=== PATIENT | male | born 1990 | race Caucasian/White ===

== ENCOUNTER → 2018-03-10 14:55 | Outpatient (CLI) | payer OTHER, MEDICAID, SELFPAY ==
[2018-03-10 14:28] VITALS: TEMP 36.4
[2018-03-10 18:04] LABS: Clostridium Difficile Tox PCR NEGATIVE for C. diff
== END ==
PROVIDERS: PCP Specialist; Visit Provider Physician Assistant
DX: R19.7 Diarrhea, unspecified (principal)
CPT/HCPCS: 87493

== ENCOUNTER → 2018-03-10 14:59 | Outpatient (CLI) | payer OTHER, MEDICAID, SELFPAY ==
[2018-03-10 14:28] VITALS: TEMP 36.4
== END ==
PROVIDERS: PCP Specialist; Visit Provider Physician Assistant
DX: R19.7 Diarrhea, unspecified (principal); Z53.9 Procedure and treatment not carried out, unspecified reason
CPT/HCPCS: 87493

== ENCOUNTER → 2018-06-29 10:57 | Outpatient (CLI) | payer OTHER, MEDICAID, SELFPAY ==
--- NOTE | 2018-06-29 10:59 | DI.RAD.S_ITS ---
PROCEDURE: XR CHEST 2V INDICATIONS: chest pain and SOB TECHNIQUE: 2 views of the chest were acquired. COMPARISON: [facility], , CHEST 2 VIEW, 02/10/2018, 12:51. FINDINGS: Surgical changes and devices: None. Lungs and pleura: No pleural effusions or pneumothorax. Lungs are clear. Mediastinum: Mediastinal contours are normal. Heart size is normal. Bones and chest wall: No suspicious bony abnormalities. Soft tissues appear unremarkable. IMPRESSION: Normal for age, source of current symptoms is not seen. Dictated by: Lalo Osman M.D. on 06/29/2018 at 12:52 Approved by: Lalo Osman M.D. on 06/29/2018 at 12:52
[2018-06-29 13:11] LABS: D Dimer < 200 ng/mL (<230)
[2018-06-29 13:15] LABS: Alanine Aminotransferase 26 IU/L (21-72); Albumin 4.1 g/dL (3.5-5.0); Albumin Globulin Ratio 1.5 (1.0-2.8); Alkaline Phosphatase 63 U/L (38-126); Aspartate Aminotransferase 20 IU/L (17-59); Bilirubin Total 0.6 mg/dL (0.2-1.3); Blood Urea Nitrogen 18 mg/dL (9-20); Calcium 9.1 mg/dL (8.4-10.2); Carbon Dioxide 29 mmol/L (22-32); Chloride 102 mmol/L (98-107); Estimated Glomerular Filt Rate > 60.0 mL/min (>60); Globulin 2.7 g/dL (1.7-4.1); Glucose 119 mg/dL (70-100); HEMOLYSIS < 15 (0-50); Potassium 3.5 mmol/L (3.4-5.1); Sodium 143 mmol/L (137-145); Total Protein 6.8 g/dL (6.3-8.2)
== END ==
PROVIDERS: Visit Provider Internal Medicine
DX: R07.9 Chest pain, unspecified (principal); R06.02 Shortness of breath
CPT/HCPCS: 36415; 71046; 80053; 85379

== ENCOUNTER 2018-06-30 16:33 | Emergency (ER) | payer OTHER, MEDICAID, SELFPAY ==
[2018-06-30 16:35] VITALS: BP 111/73; PULSE 65; RESP 20; TEMP 35.9; O2SAT 98; BMI 29.6
--- NOTE | 2018-06-30 16:49 | DI.RAD.S_ITS ---
PROCEDURE: XR CHEST 1V INDICATIONS: cp TECHNIQUE: One view of the chest was acquired. COMPARISON: 02/10/2018. FINDINGS: Surgical changes and devices: None. Lungs and pleura: No pleural effusions or pneumothorax. Lungs are clear. Mediastinum: Mediastinal contours appear normal. Heart size is normal. Bones and chest wall: No suspicious bony lesions. Overlying soft tissues appear unremarkable. IMPRESSION: No radiographic evidence of acute cardiopulmonary pathology. Dictated by: Kedar Camacho M.D. on 06/30/2018 at 17:04 Approved by: Kedar Camacho M.D. on 06/30/2018 at 17:05
--- NOTE | 2018-06-30 18:30 | ED.CHESTPAIN ---
HPI - Chest Pain General Chief Complaint: Chest Pain Stated Complaint: chest pain [id number] Time Seen by Provider: 06/30/18 17:56 Source: patient Mode of arrival: ambulatory Limitations: no limitations History of Present Illness HPI narrative: A 28-year-old male presents to the emergency department with a significant other and a chief complaint of a few days of worsening sharp and stabbing left anterior chest pain. It is worse when he moves, takes a deep breath or sits forward. He denies any a shortness of breath and is not dizzy nor weak or lightheaded. He does state that he was seen by his primary care provider a few days ago and put on anti-inflammatories and Tylenol. complaint: chest pain Onset (ago): day(s) Duration: intermittent Pain location: left chest Severity: moderate Severity scale (1-10): 5 Quality: sharp Pain radiation: none Relieving factors: remaining still Exacerbating factors: inspiration and movement Treatments prior to arrival chest pain: none Related Data Home Medications Medication Instructions Recorded Confirmed Lactobacillus acidophilus capsule 100 mg PO DAILY 03/10/18 06/29/18 Previous Rx's Medication Instructions Recorded colchicine 0.6 mg PO BID #20 tab 06/30/18 prednisone See Label Instructions PO PER PKG 06/30/18 DIR #21 each Allergies Allergy/AdvReac Type Severity Reaction Status Date / Time No Known Allergies Allergy Uncoded 06/29/18 11:30 Review of Systems Review of Systems All systems reviewed & are unremarkable except as noted in HPI and below Constitutional Denies chills, Denies fever(s), Denies lethargy and Denies weakness Eyes Denies change in vision, Denies eye discharge, Denies irritation and Denies loss of vision ENT Ears, Nose, Mouth, and Throat: Denies change in voice, Denies neck pain and Denies sore throat Cardiovascular Reports chest pain, Denies irregular heart rhythm, Denies lightheadedness, Denies palpitations, Denies dyspnea, Denies dyspnea on exertion and Denies orthopnea Respiratory Denies cough, Denies dyspnea, Denies dyspnea on exertion and Denies wheezing Gastrointestinal Gastrointestinal: Denies abdominal pain, Denies change in bowel habits, Denies diarrhea, Denies nausea and Denies vomiting Genitourinary Denies hematuria, Denies flank pain, Denies urinary incontinence and Denies urinary urgency Musculoskeletal Denies neck pain Integumentary/Breasts Denies pruritus, Denies erythema, Denies rash and Denies wounds Neurologic Denies confusion, Denies loss of vision and Denies weakness Psychiatric Denies anxiety, Denies confusion, Denies depression, Denies homicidal ideation and Denies suicidal ideation Endocrine Denies palpitations Hematologic/Lymphatic Denies easy bruising Allergic/Immunologic Denies wheezing [facility] Social History Smoking Status: Never smoker Exam Narrative Exam Narrative: GENERAL: 28-year-old male in mild distress, clutching his left chest HEAD: Atraumatic. Normocephalic. No temporal or scalp tenderness. EYES: Pupils equal round and reactive. Extraocular motions intact. No scleral icterus. No injection or drainage. ENT: Nose without bleeding, purulent drainage or septal hematoma. Throat without erythema, tonsillar hypertrophy or exudate. Uvula midline. Airway patent. NECK: Trachea midline. No JVD or lymphadenopathy. Supple, nontender, no meningeal signs. CARDIOVASCULAR: Regular rate and rhythm without murmurs, gallops, or rubs. Sharp stabbing plane on left anterior chest worse with palpation RESPIRATORY: Clear to auscultation. Breath sounds equal bilaterally. No wheezes, rales, or rhonchi. GASTROINTESTINAL: Abdomen soft, non-tender, nondistended. No hepato-splenomegaly, or palpable masses. No guarding. EXTREMITIES: No clubbing, cyanosis, or edema. No joint tenderness, effusion, or edema noted. BACK: Nontender without deformity or crepitance. No flank tenderness. NEURO: AOx3. SKIN: No rash or erythema. Initial Vital Signs Initial Vital Signs: Vital Signs Temperature 96.7 F L 06/30/18 16:35 Pulse Rate 65 06/30/18 16:35 Respiratory Rate 20 06/30/18 16:35 Blood Pressure 111/73 06/30/18 16:35 Pulse Oximetry 98 06/30/18 16:35 Course Orders Ordered: ED Orders 06/30/18 18:45 C-Reactive Protein Quant Stat Complete Blood Count AUTO DIFF Stat Comprehensive Metabolic Panel Stat Erythrocyte Sedimentation Rate Stat Lipase Stat Troponin & CK Cardiac Panel Stat Discontinued Medications Aspirin (Aspirin Chew) 324 mg PO NOW ONE Stop: 06/30/18 16:50 Last Admin: 08/29/18 19:13 Dose: Not Given Colchicine (Colcrys) 1.2 mg PO NOW ONE Stop: 06/30/18 19:56 Last Admin: 06/30/18 20:19 Dose: 1.2 mg Sodium Chloride (Normal Saline 0.9%) 1,000 mls @ 150 mls/hr IV CONT DESIREE Last Infusion: 06/30/18 20:20 Dose: 0 mls/hr Admin: 06/30/18 19:10 Dose: 150 mls/hr Vital Signs - 8 hr 06/30/18 19:27 06/30/18 20:00 06/30/18 21:09 Temperature 97.5 F L Pulse Rate 65 60 61 Respiratory Rate 16 15 16 Blood Pressure 160/77 H Blood Pressure [Left Arm] 118/81 H 105/64 Pulse Oximetry 99 100 100 MDM - Chest Pain Differential Diagnosis Likely pneumothorax, stable angina, unstable angina pectoris, atypical chest pain, st elevation myocardial infarction, costochondritis, chest pain and biliary colic Medical Records Data Attestation: I reviewed the patient's medical records. Lab Data Attestation: I reviewed the patient's lab results. Result diagrams: 06/30/18 18:45 06/30/18 18:45 Lab Results 06/30/18 06/30/18 06/30/18 Range/Units 18:45 18:45 18:45 WBC 7.1 (4.5-11.0) X10^3/uL RBC 5.15 (4.5-5.9) X10^6/uL Hgb 15.3 (13.5-17.5) g/dL Hct 44.1 (41-53) % MCV 85.5 (80-100) fL MCH 29.8 (26-34) PG MCHC 34.8 (30-36) % RDW 13.1 (11.6-14.8) % Plt Count 268 (150-400) X10^3/uL Neut % (Auto) 68.5 (50-75) % Lymph % (Auto) 24.8 L (25-40) % [place] % (Auto) 4.9 (3-14) % Eos % (Auto) 1.0 L (2-4) % Baso % (Auto) 0.8 (0-2) % Neut # (Auto) 4900 (5195-2817) /uL ESR 4 (0-15) MM/HR Sodium 144 (137-145) mmol/L Potassium 4.0 (3.4-5.1) mmol/L Chloride 107 (98-107) mmol/L Carbon Dioxide 26 (22-32) mmol/L BUN 19 (9-20) mg/dL Creatinine 0.80 (0.66-1.25) mg/dL Estimated GFR > 60.0 (>60) mL/min BUN/Creatinine Ratio 23.8 H (6-22) Glucose 89 (70-100) mg/dL Calcium 9.2 (8.4-10.2) mg/dL Total Bilirubin 0.5 (0.2-1.3) mg/dL AST 17 (17-59) IU/L ALT 21 (21-72) IU/L Alkaline Phosphatase 65 (38-126) U/L Total Creatine Kinase 69 (55-170) U/L CK-MB (CK-2) TNP Troponin I < 0.012 (0.01-0.034) ng/mL C-Reactive Protein 0.7 (<1.0) mg/dL Total Protein 7.1 (6.3-8.2) g/dL Albumin 4.2 (3.5-5.0) g/dL Globulin 2.9 (1.7-4.1) g/dL Albumin/Globulin Ratio 1.4 (1.0-2.8) Lipase 60 (23-300) U/L ECG Data Attestation: I personally reviewed and interpreted this ECG as follows: Prior ECG tracings: not available for review Interpretation: Normal sinus rhythm without signs of ectopy or ischemia MDM Narrative Medical decision making narrative: Patient is completely reproducible chest pain which is most consistent with pleurisy or costochondritis but has not improved with anti-inflammatories or Tylenol. PE considered but patient has normal D-dimer as ordered on an outpatient and the [facility] protocol would dictate no imaging needed. Myocardial infarction considered but normal troponin and EKG with non ischemic symptoms make this less likely. Pericarditis considered despite EKG without widespread ST changes. Pleuritic-type pain which is worse while leaning forward Discharge Plan Departure Patient Disposition: Home Clinical Impression: Atypical chest pain, Pericarditis Discharge Date/Time: 06/30/18 21:10 Interventions: ED Discharge Assessment Last Done: 06/30/18 21:09 Instructions: Pericarditis -- Adult Activity Restrictions/Additional Instructions: *You have been diagnosed with [ atypical chest pain, pericarditis ] *What to do: *Take medications as directed *Follow up with your primary care provider in 2-3 days, call for an appointment. Let them know you were seen in the Emergency Department and that we ask that you be seen in follow up *Return to ER if you should have any new, worsening or concerning symptoms Prescriptions: New prednisone 10 mg tablets,dose pack See Label Instructions PO PER PKG DIR Qty: 21 RF: 0 colchicine 0.6 mg tablet 0.6 mg PO BID Qty: 20 RF: 0 No Action Lactobacillus acidophilus capsule 100 mg PO DAILY RF: 0
[2018-06-30 18:57] LABS: Add Manual Diff / Slide Review NO; Basophils Percent Auto 0.8 % (0-2); Hematocrit 44.1 % (41-53); Hemoglobin 15.3 g/dL (13.5-17.5); Lymphocytes Percent Auto 24.8 % (25-40); Mean Corpuscular HGB Conc 34.8 % (30-36); Mean Corpuscular Hemoglobin 29.8 PG (26-34); Mean Corpuscular Volume 85.5 fL (80-100); Monocytes Percent Auto 4.9 % (3-14); Neutrophils Absolute Auto 4900 /uL (3000-5900); Neutrophils Percent Auto 68.5 % (50-75); Platelet Count 268 X10^3/uL (150-400); Red Blood Cell Count 5.15 X10^6/uL (4.5-5.9); Red Cell Distribution Width 13.1 % (11.6-14.8); White Blood Cell Count 7.1 X10^3/uL (4.5-11.0)
[2018-06-30] MEDS: SODIUM CHLORIDE 0.9% 1,000 ML 150 ML IV (19:10)
[2018-06-30 19:12] LABS: Alanine Aminotransferase 21 IU/L (21-72); Albumin 4.2 g/dL (3.5-5.0); Albumin Globulin Ratio 1.4 (1.0-2.8); Alkaline Phosphatase 65 U/L (38-126); Aspartate Aminotransferase 17 IU/L (17-59); BUN Creatinine Ratio 23.8 (6-22); Bilirubin Total 0.5 mg/dL (0.2-1.3); Blood Urea Nitrogen 19 mg/dL (9-20); Calcium 9.2 mg/dL (8.4-10.2); Carbon Dioxide 26 mmol/L (22-32); Chloride 107 mmol/L (98-107); Creatine Kinase 69 U/L (55-170); Estimated Glomerular Filt Rate > 60.0 mL/min (>60); Globulin 2.9 g/dL (1.7-4.1); Glucose 89 mg/dL (70-100); HEMOLYSIS < 15 (0-50); Lipase 60 U/L (23-300); Sodium 144 mmol/L (137-145); Total Protein 7.1 g/dL (6.3-8.2)
[2018-06-30 19:17] LABS: C-Reactive Protein Quant 0.7 mg/dL (<1.0)
[2018-06-30 19:20] LABS: Erythrocyte Sedimentation Rate 4 MM/HR (0-15)
[2018-06-30 19:25] LABS: Troponin I < 0.012 ng/mL (0.01-0.034)
[2018-06-30 19:27] VITALS: BP 118/81; PULSE 65; RESP 16; O2SAT 99
[2018-06-30 20:00] VITALS: BP 105/64; PULSE 60; RESP 15; O2SAT 100
[2018-06-30] MEDS: COLCHICINE 0.6 MG TABLET 1.2 MG PO (20:19)
[2018-06-30 21:09] VITALS: BP 160/77; PULSE 61; RESP 16; TEMP 36.4; O2SAT 100
--- NOTE | 2018-07-01 02:02 | ED_ITS ---
HPI - Chest Pain General Chief Complaint: Chest Pain Stated Complaint: chest pain [id number] Time Seen by Provider: 06/30/18 17:56 Source: patient Mode of arrival: ambulatory Limitations: no limitations History of Present Illness HPI narrative: A 28-year-old male presents to the emergency department with a significant other and a chief complaint of a few days of worsening sharp and stabbing left anterior chest pain. It is worse when he moves, takes a deep breath or sits forward. He denies any a shortness of breath and is not dizzy nor weak or lightheaded. He does state that he was seen by his primary care provider a few days ago and put on anti-inflammatories and Tylenol. complaint: chest pain Onset (ago): day(s) Duration: intermittent Pain location: left chest Severity: moderate Severity scale (1-10): 5 Quality: sharp Pain radiation: none Relieving factors: remaining still Exacerbating factors: inspiration and movement Treatments prior to arrival chest pain: none Related Data Home Medications Medication Instructions Recorded Confirmed Lactobacillus acidophilus capsule 100 mg PO DAILY 03/10/18 06/29/18 Previous Rx's Medication Instructions Recorded colchicine 0.6 mg PO BID #20 tab 06/30/18 prednisone See Label Instructions PO PER PKG 06/30/18 DIR #21 each Allergies Allergy/AdvReac Type Severity Reaction Status Date / Time No Known Allergies Allergy Uncoded 06/29/18 11:30 Review of Systems Review of Systems All systems reviewed & are unremarkable except as noted in HPI and below Constitutional Denies chills, Denies fever(s), Denies lethargy and Denies weakness Eyes Denies change in vision, Denies eye discharge, Denies irritation and Denies loss of vision ENT Ears, Nose, Mouth, and Throat: Denies change in voice, Denies neck pain and Denies sore throat Cardiovascular Reports chest pain, Denies irregular heart rhythm, Denies lightheadedness, Denies palpitations, Denies dyspnea, Denies dyspnea on exertion and Denies orthopnea Respiratory Denies cough, Denies dyspnea, Denies dyspnea on exertion and Denies wheezing Gastrointestinal Gastrointestinal: Denies abdominal pain, Denies change in bowel habits, Denies diarrhea, Denies nausea and Denies vomiting Genitourinary Denies hematuria, Denies flank pain, Denies urinary incontinence and Denies urinary urgency Musculoskeletal Denies neck pain Integumentary/Breasts Denies pruritus, Denies erythema, Denies rash and Denies wounds Neurologic Denies confusion, Denies loss of vision and Denies weakness Psychiatric Denies anxiety, Denies confusion, Denies depression, Denies homicidal ideation and Denies suicidal ideation Endocrine Denies palpitations Hematologic/Lymphatic Denies easy bruising Allergic/Immunologic Denies wheezing [facility] Social History Smoking Status: Never smoker Exam Narrative Exam Narrative: GENERAL: 28-year-old male in mild distress, clutching his left chest HEAD: Atraumatic. Normocephalic. No temporal or scalp tenderness. EYES: Pupils equal round and reactive. Extraocular motions intact. No scleral icterus. No injection or drainage. ENT: Nose without bleeding, purulent drainage or septal hematoma. Throat without erythema, tonsillar hypertrophy or exudate. Uvula midline. Airway patent. NECK: Trachea midline. No JVD or lymphadenopathy. Supple, nontender, no meningeal signs. CARDIOVASCULAR: Regular rate and rhythm without murmurs, gallops, or rubs. Sharp stabbing plane on left anterior chest worse with palpation RESPIRATORY: Clear to auscultation. Breath sounds equal bilaterally. No wheezes , rales, or rhonchi. GASTROINTESTINAL: Abdomen soft, non-tender, nondistended. No hepato-splenomegaly , or palpable masses. No guarding. EXTREMITIES: No clubbing, cyanosis, or edema. No joint tenderness, effusion, or edema noted. BACK: Nontender without deformity or crepitance. No flank tenderness. NEURO: AOx3. SKIN: No rash or erythema. Initial Vital Signs Initial Vital Signs: Vital Signs Temperature 96.7 F L 06/30/18 16:35 Pulse Rate 65 06/30/18 16:35 Respiratory Rate 20 06/30/18 16:35 Blood Pressure 111/73 06/30/18 16:35 Pulse Oximetry 98 06/30/18 16:35 Course Orders Ordered: ED Orders 06/30/18 18:45 C-Reactive Protein Quant Stat Complete Blood Count AUTO DIFF Stat Comprehensive Metabolic Panel Stat Erythrocyte Sedimentation Rate Stat Lipase Stat Troponin & CK Cardiac Panel Stat Discontinued Medications Aspirin (Aspirin Chew) 324 mg PO NOW ONE Stop: 06/30/18 16:50 Last Admin: 08/29/18 19:13 Dose: Not Given Colchicine (Colcrys) 1.2 mg PO NOW ONE Stop: 06/30/18 19:56 Last Admin: 06/30/18 20:19 Dose: 1.2 mg Sodium Chloride (Normal Saline 0.9%) 1,000 mls @ 150 mls/hr IV CONT DESIREE Last Infusion: 06/30/18 20:20 Dose: 0 mls/hr Admin: 06/30/18 19:10 Dose: 150 mls/hr Vital Signs - 8 hr 06/30/18 19:27 06/30/18 20:00 06/30/18 21:09 Temperature 97.5 F L Pulse Rate 65 60 61 Respiratory Rate 16 15 16 Blood Pressure 160/77 H Blood Pressure [Left Arm] 118/81 H 105/64 Pulse Oximetry 99 100 100 MDM - Chest Pain Differential Diagnosis Likely pneumothorax, stable angina, unstable angina pectoris, atypical chest pain, st elevation myocardial infarction, costochondritis, chest pain and biliary colic Medical Records Data Attestation: I reviewed the patient's medical records. Lab Data Attestation: I reviewed the patient's lab results. Result diagrams: 06/30/18 18:45 06/30/18 18:45 Lab Results 06/30/18 06/30/18 06/30/18 Range/Units 18:45 18:45 18:45 WBC 7.1 (4.5-11.0) X10^3/uL RBC 5.15 (4.5-5.9) X10^6/uL Hgb 15.3 (13.5-17.5) g/dL Hct 44.1 (41-53) % MCV 85.5 (80-100) fL MCH 29.8 (26-34) PG MCHC 34.8 (30-36) % RDW 13.1 (11.6-14.8) % Plt Count 268 (150-400) X10^3/uL Neut % (Auto) 68.5 (50-75) % Lymph % (Auto) 24.8 L (25-40) % [place] % (Auto) 4.9 (3-14) % Eos % (Auto) 1.0 L (2-4) % Baso % (Auto) 0.8 (0-2) % Neut # (Auto) 4900 (0038-5871) /uL ESR 4 (0-15) MM/HR Sodium 144 (137-145) mmol/L Potassium 4.0 (3.4-5.1) mmol/L Chloride 107 (98-107) mmol/L Carbon Dioxide 26 (22-32) mmol/L BUN 19 (9-20) mg/dL Creatinine 0.80 (0.66-1.25) mg/dL Estimated GFR > 60.0 (>60) mL/min BUN/Creatinine Ratio 23.8 H (6-22) Glucose 89 (70-100) mg/dL Calcium 9.2 (8.4-10.2) mg/dL Total Bilirubin 0.5 (0.2-1.3) mg/dL AST 17 (17-59) IU/L ALT 21 (21-72) IU/L Alkaline Phosphatase 65 (38-126) U/L Total Creatine Kinase 69 (55-170) U/L CK-MB (CK-2) TNP Troponin I < 0.012 (0.01-0.034) ng/mL C-Reactive Protein 0.7 (<1.0) mg/dL Total Protein 7.1 (6.3-8.2) g/dL Albumin 4.2 (3.5-5.0) g/dL Globulin 2.9 (1.7-4.1) g/dL Albumin/Globulin Ratio 1.4 (1.0-2.8) Lipase 60 (23-300) U/L ECG Data Attestation: I personally reviewed and interpreted this ECG as follows: Prior ECG tracings: not available for review Interpretation: Normal sinus rhythm without signs of ectopy or ischemia MDM Narrative Medical decision making narrative: Patient is completely reproducible chest pain which is most consistent with pleurisy or costochondritis but has not improved with anti-inflammatories or Tylenol. PE considered but patient has normal D-dimer as ordered on an outpatient and the [facility] protocol would dictate no imaging needed. Myocardial infarction considered but normal troponin and EKG with non ischemic symptoms make this less likely. Pericarditis considered despite EKG without widespread ST changes. Pleuritic- type pain which is worse while leaning forward Discharge Plan Departure Patient Disposition: Home Clinical Impression: Atypical chest pain, Pericarditis Discharge Date/Time: 06/30/18 21:10 Interventions: ED Discharge Assessment Last Done: 06/30/18 21:09 Instructions: Pericarditis -- Adult Activity Restrictions/Additional Instructions: *You have been diagnosed with [ atypical chest pain, pericarditis ] *What to do: *Take medications as directed *Follow up with your primary care provider in 2-3 days, call for an appointment. Let them know you were seen in the Emergency Department and that we ask that you be seen in follow up *Return to ER if you should have any new, worsening or concerning symptoms Prescriptions: New prednisone 10 mg tablets,dose pack See Label Instructions PO PER PKG DIR Qty: 21 RF: 0 colchicine 0.6 mg tablet 0.6 mg PO BID Qty: 20 RF: 0 No Action Lactobacillus acidophilus capsule 100 mg PO DAILY RF: 0
== END 2018-06-30 21:10 | disposition home or self-care (01) ==
PROVIDERS: Emergency Medicine; Emergency Provider Emergency Medicine; PCP Specialist
DX: I31.9 Disease of pericardium, unspecified (principal); R07.89 Other chest pain
CPT/HCPCS: 36415; 36591; 71045; 80053; 82550; 82553; 83690; 84484; 85025; 85651; 86140; 93005; 93010; 96360; 99283; 99285